=== PATIENT | male | born 1995 | race Caucasian/White ===

== ENCOUNTER 2017-07-23 22:04 | Emergency (ER) | payer OTHER ==
[2017-07-23 22:18] VITALS: BP 121/70; PULSE 82; RESP 16; TEMP 97.9; O2SAT 98
[2017-07-23] MEDS ORDERED: Bacitracin 500 Units/gm Oint Foilpak UD TOP ONE (22:34)
[2017-07-23] MEDS ORDERED: Lidocaine 2% Inj (20ml) INFIL ONE (22:34)
[2017-07-23] MEDS ORDERED: Bacitracin 500 Units/gm Oint Foilpak UD ONE (22:46)
[2017-07-23] MEDS ORDERED: Lidocaine 2% MPF (5 ml) Inj ONE (22:46)
--- NOTE | 2017-07-23 23:05 | C.PDOC ---
History Of Present Illness 21 year old male presents to the ER after he sustaining a laceration to his left 3rd finger with a broken glass while at work. Patient reports he is right hand dominant. Denies any change in sensation. Time Seen by Provider: 07/23/17 22:15 Chief Complaint (Nursing): Abnormal Skin Integrity History Per: Patient History/Exam Limitations: no limitations Onset/Duration Of Symptoms: Hrs Current Symptoms Are (Timing): Still Present Location Of Injury: Left: Hand Recent travel outside of the [place]: No Past Medical History Reviewed: Historical Data, Nursing Documentation, Vital Signs Vital Signs: Last Vital Signs Temp 97.9 F 07/23/17 22:12 Pulse 82 07/23/17 22:12 Resp 16 07/23/17 22:12 BP 121/70 07/23/17 22:12 Pulse Ox 98 07/23/17 23:18 Family History: States: Unknown Family Hx - Social History Hx Alcohol Use: Yes Hx Substance Use: No - Immunization History Hx Influenza Vaccination: No Hx Pneumococcal Vaccination: No Review Of Systems Constitutional: Negative for: Fever Musculoskeletal: Positive for: Hand Pain Skin: Positive for: Other (Laceration) Neurological: Negative for: Weakness, Numbness Physical Exam - Physical Exam Appears: Non-toxic Skin: Warm, Dry Head: Atraumatic, Normacephalic Eye(s): bilateral: Normal Inspection, EOMI Neck: Normal ROM, Supple Chest: Symmetrical Respiratory: No Accessory Muscle Use Extremity: Normal ROM (x4), Capillary Refill (<2 seconds), Other (3cm laceration to left 3rd proximal finger) Pulses: Left Radial: Normal, Right Radial: Normal Neurological/Psych: Oriented x3, Normal Speech, Normal Motor, Normal Sensation ED Course And Treatment O2 Sat by Pulse Oximetry: 98 (Room air) Pulse Ox Interpretation: Normal Progress Note: Patient tolerated laceration repair without any difficulty, bacitracin and sterile dressing applied, and placed in finger splint for support. Patient given proper wound care instructions and advised to follow up for suture removal. Laceration - Laceration Repair Left 3rd finger Wound Length (In cm): 3 Description Of Wound: Linear Wound Cleansed With: Betadine, Sterile Saline Anesthesia: Lidocaine 1% Wound Examination: Irrigated With Saline, No FB With Wound Exploration, No Tendon Injury With Wound Exploration Wound Closure: Suture Suture Technique And Material Used: Nylon (Four 5-0) Disposition - Disposition Disposition: HOME/ ROUTINE Disposition Time: 23:03 Condition: STABLE Additional Instructions: Watch for signs of infection including redness, swelling and discharge. Suture removal in 7 days. Prescriptions: Bacitracin OINT 1 applic TP BID #1 tube Instructions: Laceration Repair Forms: [facility] (Russian), Work Excuse - Clinical Impression Clinical Impression: Finger laceration - PA / PHARMACY RET[employer] SUPPORT SPECIALIST / Resident Statement MD/DO has reviewed & agrees with the documentation as recorded. - Scribe Statement The provider has reviewed the documentation as recorded by the Scribe Gino Mckenzie All medical record entries made by the Deannaibdeomnd were at my direction and personally dictated by me. I have reviewed the chart and agree that the record accurately reflects my personal performance of the history, physical exam, medical decision making, and the department course for this patient. I have also personally directed, reviewed, and agree with the discharge instructions and disposition.
== END 2017-07-23 23:20 | disposition home or self-care (01) ==
LOC: C.ER 22:04
DX: S61.213A Laceration without foreign body of left middle finger without damage to nail, initial encounter (principal); W25.XXXA Contact with sharp glass, initial encounter; Y92.89 Other specified places as the place of occurrence of the external cause; Y99.8 Other external cause status